=== PATIENT | male | born 1990 | race Caucasian/White ===

== ENCOUNTER 2016-10-14 20:54 | Emergency (ER) | payer MEDICAID, OTHER ==
[2016-10-14 21:13] VITALS: RESP 16; TEMP 98.6
--- NOTE | 2016-10-14 21:32 | EDPHY ---
H & P Time Seen by Provider: 10/14/16 21:18 HPI/ROS: CHIEF COMPLAINT: Medical clearance in the crisis center HISTORY OF PRESENT ILLNESS: 26-year-old male history of depression arrives via cab from the crisis Center for medical clearance. There is a note from the crisis Center requesting that blood in urine as well as a left foot x-ray be obtained on the patient and then to have him go back to the crisis Center. He is complaining of increasing depression without suicidal or homicidal ideation. He states that 1 week ago while tripping on LSD he rolled his left foot has been complaining of left foot pain since. He has been able to bear weight. Denies ankle pain. Denies proximal tibia or fibula pain. Denies hallucination. REVIEW OF SYSTEMS: A ten point review of systems was performed and is negative with the exception of the items mentioned in the HPI PAST MEDICAL & SURGICAL HISTORY: Depression SOCIAL HISTORY:LSD use 1 week ago PHYSICAL EXAM (Prior to examination, patient consented to physical exam, hands were washed and my usual and customary physical exam procedures followed) 1) GENERAL: Well-developed, well-nourished, alert and oriented. Appears anxious and depressed. 2) HEAD: Normocephalic, atraumatic 3) HEENT: Pupils equal, round, reactive to light bilaterally. Sclera anicteric. 4) NECK: Full range of motion, no meningeal signs. 5) LUNGS: Clear auscultation bilaterally 6) HEART: Regular rate and rhythm 7) ABDOMEN: No guarding, no rebound, no focal tenderness, 8) MUSCULOSKELETAL: left foot: Dirty, no signs of infection no erythema. He is tender to palpation left 5th metatarsal. The ankle is nontender. Compartments are soft. Proximal tibia nontender. DP PT pulses are present and brisk. Otherwise, Moving all extremities, no focal areas of tenderness, no obvious trauma. No peripheral edema or discoloration. 9) BACK: no visual or palpable abnormality. 10) SKIN: No rash, no petechiae. 11) Psychiatric: Patient is oriented X 3, there is no agitation. DIFFERENTIAL DIAGNOSIS: in no particular include but limited to fracture, sprain, depression Smoking Status: Current every day smoker Constitutional: Initial Vital Signs Temperature (C) 37 C 07/03/17 21:08 Heart Rate 72 10/14/16 21:08 Respiratory Rate 16 10/14/16 21:08 Blood Pressure 140/73 H 10/14/16 21:08 O2 Sat (%) 97 10/14/16 21:08 O2 Delivery Mode Room Air Allergies/Adverse Reactions: No Known Allergies Allergy (Unverified 03/03/11 11:28) Home Medications: Medication Instructions Recorded NO HOME MEDICATIONS 03/03/11 MDM/Departure - MDM Imaging Results: Imaging Impressions Foot X-Ray 10/14/16 21:14 Impression: Negative for fracture. Images reviewed by myself ED Course/Re-evaluation: I reviewed the patient's imaging and diagnostic results with him. I think he can be discharged and go back to the [facility] crisis [facility]. He continues to deny suicidal or homicidal ideation - Depart Disposition: Home, Routine, Self-Care Clinical Impression: Depression Qualifiers: Depression Type: other depression Qualified Code(s): F32.89 - Other specified depressive episodes Condition: Good Instructions: Depression (ED) Additional Instructions: Return to the emergency department if you develop thoughts of hurting yourself thoughts of hurting someone else or any other symptoms that concern you. Referrals: [facility] [Clinic] - 1 day without fail
[2016-10-14 21:37] LABS: % IMMATURE GRANULYOCYTES 0.6 % (0.0-1.1); ABSOLUTE IMMATURE GRANULOCYTES 0.05 10^3/uL (0.00-0.10); ADD DIFF? NO; ADD MORPH? NO; ADD SCAN? NO; ATYPICAL LYMPHOCYTE FLAG 20 (0-99); FRAGMENT RBC FLAG 0 (0-99); HEMATOCRIT 48.5 % (40.0-51.0); HEMOGLOBIN 16.3 g/dL (13.7-17.5); LEFT SHIFT FLG 0 (0-99); LIPEMIA HEMOLYSIS FLAG 80 (0-99); MEAN CELL HEMOGLOBIN 30.2 pg (27.9-34.1); MEAN CELL HEMOGLOBIN CONCENTR. 33.6 g/dL (32.4-36.7); MEAN PLATELET VOLUME 9.2 fL (8.7-11.7); PLATELET CLUMPS FLAG 10 (0-99); PLATELET COUNT 243 10^3/uL (150-400); RED BLOOD CELL COUNT 5.39 10^6/uL (4.40-6.38); RED CELL DISTRIBUTION WIDTH 12.9 % (11.5-15.2)
[2016-10-14 21:48] LABS: ANION GAP 12 mEq/L (8-16); CALCIUM 9.8 mg/dL (8.5-10.4); CARBON DIOXIDE 22 mEq/l (22-31); CHLORIDE 106 mEq/L (97-110); CREATININE 0.8 mg/dL (0.7-1.3); ETHANOL SERUM < 10 mg/dL (0-10); GLOMERULAR FILTRATION RATE > 60; GLUCOSE 85 mg/dL (70-100); POTASSIUM 4.1 mEq/L (3.5-5.2); SODIUM 140 mEq/L (134-144)
[2016-10-14 22:33] VITALS: BP 120/74; PULSE 88; O2SAT 96
== END 2016-10-14 22:42 | disposition home or self-care (01) ==
DX: F32.89 Other specified depressive episodes (principal); F17.200 Nicotine dependence, unspecified, uncomplicated
CPT/HCPCS: 80305; G0480